=== PATIENT | female | born 1985 | race Caucasian/White ===

== ENCOUNTER 2019-02-18 09:46 | Day surgery (SDC) | payer OTHER ==
[2019-02-18] MEDS ORDERED: Ondansetron PF 4 MG/2 ML Vial IVP PRN (10:41)
[2019-02-18] MEDS ORDERED: Lactated Ringer's 1,000 ML IV SCH ×2 (10:45)
[2019-02-18 11:06] VITALS: BMI 30.9
[2019-02-18 11:12] LABS: #Basophils 0.1 thou/uL (0.0-0.2); #Eosinphils 0.1 thou/uL (0.0-0.7); #Lymphocytes 2.6 thou/uL (1.20-3.40); #Neutrophils 5.8 thou/uL (1.40-6.50); %Eosinophils 0.8 % (0.0-10.0); %Lymphocytes 27.1 % (21.0-51.0); %Monocytes 10.6 % (0.0-10.0); %Neutrophils 60.6 % (42.0-75.0); Hemoglobin 13.5 g/dL (12.0-16.0); Mean Corpuscular HGB CONC 34.4 g/dL (32.0-36.0); Mean Corpuscular Hemoglobin 31.7 pg (27.0-31.0); Mean Corpuscular Volume 92.3 fL (78.0-98.0); Mean Platelet Volume 8.3 fL (7.4-10.4); Platelet Count 237 thou/uL (130-400); RBC Distribution Width 12.9 % (11.5-14.5); Red Blood Cell (RBC) Count 4.26 mill/uL (4.20-5.40); White Blood Cell (WBC) Count 9.6 thou/uL (4.8-10.8)
[2019-02-18 11:30] LABS: ALT (SGPT) 18 U/L (8-55); AST (SGOT) 19 U/L (5-34); Albumin 3.7 g/dL (3.5-5.0); Alkaline Phosphatase 184 U/L (40-150); Anion Gap 13 mmol/L (10-20); BUN (Urea Nitrogen) 7 mg/dL (7.0-18.7); Bilirubin, Total 0.4 mg/dL (0.2-1.2); Calc. Creatinine Clearance 121 mL/min (70-130); Calcium 9.1 mg/dL (7.8-10.44); Carbon Dioxide 18 mmol/L (22-29); Chloride 106 mmol/L (98-107); Estimated GFR-MDRD 77; Globulin 3.2 g/dL (2.4-3.5); Glucose 94 mg/dL (70-105); Potassium 3.9 mmol/L (3.5-5.1); Protein, Total 6.9 g/dL (6.0-8.3); Sodium 133 mmol/L (136-145)
[2019-02-18 12:40] LABS: Bilirubin Negative (Negative); Blood, Urine Negative (Negative); Clarity CLEAR (Clear); Glucose, Urine (Dipstick) Negative (Negative); Leukocyte Moderate (Negative); Nitrite Negative (Negative); Protein, Urine (Dipstick) Negative (Neg-Trace); Specific Gravity, Urine 1.005 (1.002-1.036); Urobilinogen 0.2 mg/dL (0.2-1.0)
[2019-02-18 12:43] LABS: Bacteria/HPF 1+ HPF (None Seen); Hyaline Casts/LPF 0-3 HYALINE CAST LPF (0-3 Hyaline); Pathc Cast-AUWi Flag 0.27 (0-2.49); Squamous Epithelial 0-3 HPF (0-3)
[2019-02-18] MEDS ORDERED: Promethazine HCl 25 MG/ML VIAL IM/IV PRN (13:30)
[2019-02-18 13:32] LABS: Creatinine, Urine 32.17 mg/dL (47-110); Protein, Urine Random Quant Less than 10 mg/dL (1-14)
[2019-02-18] MEDS ORDERED: CEFAZOLIN 1 GM VIAL SLOW IVP SCH (14:00)
--- NOTE | 2019-02-19 08:25 | SS ---
DATE OF ADMISSION: 02/18/2019 DATE OF DISCHARGE: 02/18/2019 EVALUATING PHYSICIAN: Jeromy Mcgregor MD CHIEF COMPLAINT: Nausea, vomiting, blood pressure check. HISTORY OF PRESENT ILLNESS: Ms. Martin is a 33-year-old white G1, P0, with an estimated date of confinement of 03/04/2019, who presents complaining of nausea, vomiting, and accompanying diarrhea over the last 24 to 48 hours. Her care has been with a Dr. Wolfe in [place], [place], and apparently she was here visiting family. It appears that she did see Dr. Sanchez for one visit in the office yesterday, and had a normal evaluation there. Apparently, she called her doctor in [place] with her symptoms and she was told to report here for evaluation. At the present time, she denies associated visual changes, headache, or right upper quadrant pain. PAST MEDICAL HISTORY: None. PAST SURGICAL HISTORY: Includes bunions and breast augmentation. CURRENT MEDICATIONS: 1. vitamins. 2. Phenergan. ALLERGIES: NO KNOWN ALLERGIES. SOCIAL HISTORY: Denies tobacco, alcohol, or drug use. FAMILY HISTORY: Unremarkable. PHYSICAL EXAMINATION: VITAL SIGNS: In triage, initial blood pressure is 139/96. Serial blood pressures were obtained. None are in the severe range. Her last blood pressure is 130/90. GENERAL: She is pleasant and in no acute distress. ABDOMEN: Soft, nontender, and gravid. heart rate tracing is stable with no decelerations. No significant uterine contractions are seen. LABORATORY DATA: White count returns 19.6, hemoglobin and hematocrit 13.5 and 39.3 respectively. Platelet count is 237,000. Chemistries; sodium is 133, potassium 3.9, creatinine 0.85, glucose 94, total bilirubin 0.4, AST and ALT are 19 and 18 respectively with an alkaline phosphatase of 184. Urinalysis returns with a specific gravity of 1.005 with moderate leukocytes, negative nitrites, negative urinary protein, negative ketones, and negative blood. Microscopic shows 4 to 6 rbc's, 7 to 10 wbc's, 0 to 3 squamous cells, and 1+ bacteria. The patient is given IV hydration as well as Phenergan 12.5 IV for which she had no further vomiting. She was also given 1 g of Ancef IV. ASSESSMENT: 1. 38-week intrauterine . No evidence of severe preeclampsia at this time. 2. Suspected urinary tract infection. PLAN: The patient has been given a copy of her laboratories, so that she can travel back to [place] and follow up with her physician there. She was also given a prescription for Keflex 500 mg one p.o. t.i.d. for 7 days when she tolerates p.o. better. She was told to keep herself hydrated at home with Gatorade if need be. She was given complete preeclampsia precautions and was sent home in good condition. Job ID: [id number]
== END 2019-02-18 15:35 | disposition home or self-care (01) ==
LOC: L&D/OP 09:46
PROVIDERS: ATTEND Obstetrics & Gynecology
DX: O21.2 Late vomiting of pregnancy (principal); O99.89 Other specified diseases and conditions complicating pregnancy, childbirth and the puerperium; R19.7 Diarrhea, unspecified; Z3A.38 38 weeks gestation of pregnancy; Z79.899 Other long term (current) drug therapy
CPT/HCPCS: 36415; 80053; 81003; 81015; 82570; 84156; 85025; 96361; 96365; 96375; 99283; J0690; J2550